=== PATIENT | female | born 1990 | race Hispanic/Latino ===

== ENCOUNTER 2021-02-28 03:16 | Emergency (ER) | payer SELFPAY ==
[2021-02-28 03:28] VITALS: BP 140/73
== END 2021-02-28 06:31 | disposition left against medical advice (07) ==
LOC: ED 03:16
DX: S91.311A Laceration without foreign body, right foot, initial encounter (principal); Z53.21 Procedure and treatment not carried out due to patient leaving prior to being seen by health care provider; X58.XXXA Exposure to other specified factors, initial encounter; Y93.89 Activity, other specified; Y92.488 Other paved roadways as the place of occurrence of the external cause; Y99.8 Other external cause status